=== PATIENT | female | born 1995 | race Caucasian/White ===

== ENCOUNTER 2023-01-20 07:11 | Day surgery (SDC) | payer BC ==
[~2023-01-20 07:11] MED LIST: DEXAMETHASONE SOD PHOSPHATE 4 MG/ML 1 ML VIAL IV ONE; HYDROmorphone 0.5 MG/0.5 ML SYRINGE IVP PRN; LACTATED RINGERS 1,000 ML IV SCH; LIDOCAINE 1% (10MG/ML) FOR IV START INTRADERMA PRN; MIDAZOLAM 2 MG/2 ML VIAL IV PRN; ONDANSETRON 4 MG/2 ML VIAL IVP ONE
[2023-01-20] MEDS ORDERED: LACTATED RINGERS 1,000 ML IV ONE (07:45)
[2023-01-20] MEDS ORDERED: fentaNYL (PF) 50 MCG/1 ML VIAL IVP ONE ×2 (08:42)
[2023-01-20] MEDS ORDERED: MIDAZOLAM 2 MG/2 ML VIAL IVP ONE ×2 (08:42)
[2023-01-20] MEDS ORDERED: GLYCOPYRROLATE 0.2 MG/ML 2 ML VIAL ONE (08:50)
[2023-01-20] MEDS ORDERED: ROPIVACAINE 5 MG/ML 30 ML VIAL ONE (08:50)
[2023-01-20] MEDS ORDERED: SODIUM CHLORIDE 0.9% (PF) 10 ML VIAL ONE (08:50)
[2023-01-20] MEDS ORDERED: PROPOFOL 10 MG/ML 20 ML VIAL IV ONE (08:50)
[2023-01-20] MEDS ORDERED: ONDANSETRON 4 MG/2 ML VIAL ONE (08:50)
[2023-01-20] MEDS ORDERED: LIDOCAINE 2% INJ 20 MG/ML (2 ML VIAL) ONE (08:50)
[2023-01-20] MEDS ORDERED: NEOSTIGMINE 1 MG/ML 10 ML VIAL ONE (08:50)
[2023-01-20] MEDS ORDERED: KETOROLAC 15 MG/ML 1 ML VIAL ONE (08:50)
[2023-01-20] MEDS ORDERED: ROCURONIUM 10 MG/ML (5 ML VIAL) IV ONE (08:50)
--- NOTE | 2023-01-20 09:56 | P.OP ---
Date of Procedure: 01/20/23 Preoperative Diagnosis: Right Achilles tendon rupture Postoperative Diagnosis: Same Procedure(s) Performed: Primary repair right Achilles tendon rupture Implants: Arthrex 4.75 mm swivel lock anchors 2 Anesthesia: KIANAA Surgeon: Vicente Neal Estimated Blood Loss (ml): 10 Pathology: none sent Condition: stable Disposition: PACU Description of Procedure: Prior to the patient being brought to the operative room, anesthesia administered a nerve block and left lower extremity. Patient was then brought into the operating room where timeout was taken to confirm correct patient identifiers, correct laterally of surgery, and correct procedure. Once all st aff in the room were in agreement the timeout, the patient was induced and placed under general anesthesia. The patient was then placed on the operating table in the prone position, with appropriate padding in the thoracic area as well as the face. Once anesthesia was satisfied with position of the patient, a well-padded tourniquet was placed on the left thigh. The left leg was then prepped and draped in usual manner. Attention was directed to the posterior aspect the left ankle, where there was a palpable defect in the watershed area of the Achilles tendon. A transverse incision was made near the proximal stump of the Achilles rupture. It was deepened under the subcutaneous tissue careful to identify, avoid, and retract any neurovascular structures and cauterize any bleeding vessels. Blunt dissection was continued down to level of the peritenon. Blunt instrumentation was inserted on the medial lateral side of the Achilles tendon to separate the peritenon from the proximal stump. A large sponge forceps was used to grasp proximal stump of the Achilles tendon and pull it distally. The Arthrex PARS jig was inserted on either side of the Achilles tendon with the inner arms ins roddy the peritenon. With tension placed on the proximal stump of the Achilles tendon, a needle was passed through the #1 position of the PARS jig to lock the tendon in place. The #2 suture was passed next. The looped locking stitches were passed through the holes 3 and 4. The last suture was through 5. The sutures are then evened out and then the PARS jig was retracted distally to pull the suture within the peritenon and along the course of the proximal stump of the Achilles tendon. The sutures were delivered into the surgical field. The looped sutures were used to pass the #2 suture to create a locking stitch both medially and laterally. The looped sutures then placed on the back table and set aside. Tension was placed on both suture stacks and pulled distally to remove any creep from the suture in the tendon. Once the creep was removed, tension was placed on the tendon and it was indicated that the suture had a good grasp of the tendon given that the gastroc muscle belly was moving while pulling on the suture. 2 small stab incisions were made on the medial lateral aspects of the Achilles tendon insertion over the calcaneus. Those incisions are taken directly down to bone. The drill bit for the 4.75 mm swivel lock anchor was used to create drill holes in the calcaneus. The drill holes were then tapped. The suture passer was placed through the calcaneal incisions and then passed through the distal stump of the Achilles tendon exiting out at the rupture site. The suture passer was then used to grasp the suture stack and pull it through the distal stump of the tendon and out the corresponding incision over the calcaneus. This is then repeated with the opposite side. With tension placed on the suture to bring the tendon ends together, the suture was passed through the swivel lock anchor which was then inserted into the drill hole in the calcaneus and the swivel lock was impacted and advanced to lock the suture in place. This was then repeated for the opposite side. Then the knee was flexed and Cole's test was performed. Cole's test was negative. The suture was cut and the wound is thoroughly irrigated with antibiotic saline. Subcutaneous closure of all incisions was done with 4-0 Monocryl. The L-shaped incision over the rupture was closed with 4-0 Stratafix in a running subcuticular manner. Dermal glue was applied over all the incisions as well as the trejo made by the passing needles. Once dried Steri-Strips are placed over the incisions. An Arthrex jumpstart dressing was placed over the incisions and then covered with a dry sterile dressing. Then the patient was placed in a below-knee fracture boot with the ankle slightly plantar flexed. The patient was rolled onto the transfer table in the supine position and then anesthesia was reversed. The patient was taken recovery with vital signs stable.
[2023-01-20 10:09] VITALS: TEMP 97
[2023-01-20 10:17] VITALS: RESP 16
[2023-01-20 10:58] VITALS: BP 120/76; PULSE 54
--- NOTE | 2023-01-20 17:24 | P.ANPRN ---
Procedure Note - Anesthesia - Nerve Block Performed Right Adductor Canal Time Out Performed: Yes (08:40) Date of Procedure: 01/20/23 Procedure Start Time: :40 Procedure Stop Time: :45 Location of Patient: PreOp Indication: Acute Post-Operative Pain, Requested by Surgeon (Dr Neal) Sedation Type: Sedate with meaningful contact maintained Preparation: Sterile Prep Position: Supine Catheter: None Needle Types: Pajunk Needle Gauge: 21 Ultrasound used to visualize needle placement: Yes Ultrasound used to observe medication spread: Yes Injectate: 0.5% Ropivacaine (see comment for volume) (20cc) Blood Aspirated: No Pain Paresthesia on Injection Noted: No Resistance on Injection: Normal Image Stored and Saved: Yes Events: Uneventful and Well Tolerated
--- NOTE | 2023-01-20 17:25 | P.ANPRN ---
Procedure Note - Anesthesia - Nerve Block Performed Right Popliteal Time Out Performed: Yes Date of Procedure: 01/20/23 Procedure Start Time: 08:46 Procedure Stop Time: 09:01 Location of Patient: PreOp Indication: Acute Post-Operative Pain, Requested by Surgeon (Dr Neal) Sedation Type: Sedate with meaningful contact maintained Preparation: Sterile Prep Position: Left Lateral Catheter: None Needle Types: Pajunk Needle Gauge: 21 Ultrasound used to visualize needle placement: Yes Ultrasound used to observe medication spread: Yes Injectate: 0.5% Ropivacaine (see comment for volume) (15cc +5cc PF Normal saline) Blood Aspirated: No Pain Paresthesia on Injection Noted: No Resistance on Injection: Normal Image Stored and Saved: Yes Events: Uneventful and Well Tolerated
== END 2023-01-20 11:36 | disposition home or self-care (01) ==
LOC: OR 07:11
PROVIDERS: ATTEND Podiatrist
DX: S86.011A Strain of right Achilles tendon, initial encounter (principal); G89.18 Other acute postprocedural pain; Z86.59 Personal history of other mental and behavioral disorders; Z79.899 Other long term (current) drug therapy; X58.XXXA Exposure to other specified factors, initial encounter
CPT/HCPCS: 64447; 81025; 64445; 27650; C1713 ×2; J2250; J1100; J2710; J0690; J2405; J2795; J1885; J2704; J2001; J3010